=== PATIENT | male | born 1985 | race Caucasian/White ===

== ENCOUNTER 2016-10-14 23:28 | Emergency (ER) | payer MEDICAID, OTHER ==
[~2016-10-14] VITALS: Ht 185.4 cm; Wt 72.6 kg
[2016-10-14 23:28] VITALS: BP_SYST 119
[2016-10-15] MEDS ORDERED: LORazepam 1 MG TABLET PO ONE (00:15)
[2016-10-15 00:25] VITALS: BP_SYST 130
== END 2016-10-15 00:25 | disposition home or self-care (01) ==
LOC: SED 23:28
DX: F41.9 Anxiety disorder, unspecified (principal); Z88.8 Allergy status to other drugs, medicaments and biological substances
CPT/HCPCS: 82962; 99284